=== PATIENT | male | born 1935 | race American Indian/Alaskan Native ===

== ENCOUNTER 2016-05-10 10:34 | Day surgery (SDC) | payer MEDICARE, OTHER ==
[~2016-05-10 10:34] MED LIST: ANCEF/STERILE WATER 2 GM/20 ML 2 GM/20 ML SYRINGE IV SCH; MARCAINE 0.5% INFILTRATI ONE; NACL 0.9% IR ONE; XYLOCAINE 1%/ EPI 1:100,000 INFILTRATI ONE; ceFAZolin 2 GM in NACL 0.9% 100 ML IV ONE
[2016-05-10] MEDS ORDERED: NACL 0.9% 1000 ML 1,000 ML ONE (11:42)
--- NOTE | 2016-05-10 11:46 | Anesthesia Consultation ---
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
--- NOTE | 2016-05-10 11:46 | Anesthesia Day of Surgery ---
Anesthesia Day of Surgery - Day of Surgery Patient Examined: Yes Patient H&P Reviewed: Yes Patient is NPO: Yes
[2016-05-10] MEDS ORDERED: XYLOCAINE MPF 2% ONE (11:56)
[2016-05-10] MEDS ORDERED: SUBLIMAZE ONE (11:57)
[2016-05-10] MEDS ORDERED: DIPRIVAN 10 MG/ML IV ONE (11:57)
[2016-05-10] MEDS ORDERED: VERSED ONE (11:57)
[2016-05-10] MEDS ORDERED: NACL 0.9% 1000 ML 1,000 ML IV SCH (12:00)
[2016-05-10] MEDS ORDERED: ZEMURON IV ONE (12:38)
[2016-05-10] MEDS ORDERED: ePHEDrine SULFATE ONE ×2 (12:38→13:32)
[2016-05-10] MEDS ORDERED: MARCAINE 0.5% INFILTRATI ONE ×2 (12:48)
[2016-05-10] MEDS ORDERED: XYLOCAINE 1%/ EPI 1:100,000 INFILTRATI ONE ×2 (12:48)
[2016-05-10] MEDS ORDERED: NEOSTIGMINE ONE (13:01)
[2016-05-10] MEDS ORDERED: ZOFRAN ONE (13:01)
[2016-05-10] MEDS ORDERED: ROBINUL ONE (13:01)
[2016-05-10] MEDS ORDERED: NACL 0.9% IR ONE (13:33)
--- NOTE | 2016-05-10 14:22 | Discharge Summary ---
Short Stay Discharge Plan Activity: no restrictions, other (no driving until seen in the office) Diet: regular Wound: other (remove dressing in 3 days; may shower in 3 days) Follow up with: BRAXTON KLEIN DO [Primary Care Provider] - 7 Days VIKTORIYA COLÓN MD [Staff Physician] - 7 Days Prescriptions: HYDROcodone/APAP 5-325 [Cedar 5/325] 1 each PO Q4HR PRN #30 tablet PRN Reason: Pain
--- NOTE | 2016-05-10 14:23 | Post Operative Note ---
Pre-op diagnosis: STM R neck/back 10 x 10 cm; STM R upper back 10 X 10 cm Post-op diagnosis: same Findings: see path Procedure: Excision of STM R neck/back Excision of STM R upper back Anesthesia: GETA Surgeon: VIKTORIYA COLÓN Estimated blood loss: none Pathology: list (STM X 2) Specimen disposition: to lab Condition: stable Disposition: PACU
--- NOTE | 2016-05-10 14:44 | Post Anesthesia Evaluation ---
- Post Anesthesia Evaluation Patient Participated: No (resting) Airway Patent: Yes Stable Respiratory Function: Yes Nausea/Vomiting: No Temp > 96.8F: Yes Pain Manageable: Yes Adequeate Hydration: Yes Anesthesia Complications: No Block Receding Appropriately: No Patient on Ventilator: No
--- NOTE | 2016-05-10 15:01 | Operative Report ---
PREOPERATIVE DIAGNOSES: 1. Soft tissue mass, right neck, upper back, 10 x 10 cm. 2. Soft tissue mass, right upper back, 10 x 10 cm. POSTOPERATIVE DIAGNOSES: 1. Soft tissue mass, right neck, upper back, 10 x 10 cm. 2. Soft tissue mass, right upper back, 10 x 10 cm. PROCEDURE: 1. Excision of soft tissue mass, right neck/upper back 10 x 10 cm. 2. Excision of soft tissue mass, right upper back 10 x 10 cm. TYPE OF ANESTHESIA: General. SURGEON: Hawa Brandt MD INFRASTRUCTURE TECHNICIAN: None. ESTIMATED BLOOD LOSS: None. INDICATIONS: This is an 80-year-old gentleman noted to have above 2 soft tissue masses. Due to the large size and difficulty in lying on his back, he wanted to have the mass removed. DESCRIPTION OF PROCEDURE: The procedure was done in the operating room. The patient was brought to the operating room and after adequate general endotracheal anesthesia was obtained, he was placed in a prone position with appropriate padding. The right neck and upper back were prepped and draped in usual fashion. Initially, attention was turned to the mass in the neck and upper back area, 1:1 mixture of 0.25% Marcaine and 1% lidocaine was infiltrated in field block anesthesia fashion. A vertical incision was made overlying the mass and dissection was carried down. The soft tissue mass was from surrounding attachments using Harmonic scalpel device and finger dissection of the mass. Once it was freed, it was removed and sent to pathology. Hemostasis was ascertained. The wound was irrigated. The subcutaneous pocket was reapproximated using 3-0 Vicryl and then skin was reapproximated using 4-0 Monocryl in running subcuticular fashion. Attention was then turned to the second mass that was a little bit lower and lateral on the right upper back. Again, local anesthetic was infiltrated in field block anesthesia fashion. Next, an incision was made over the mass. Dissection was carried down and the mass was broken from its surrounding attachments using the Harmonic scalpel device as well as finger dissection. Once this was done, the mass was removed and sent to pathology. Hemostasis was ascertained. The wound was irrigated again. The subcutaneous pocket was reapproximated using 3-0 Vicryl and then the skin was reapproximated using 4-0 Monocryl in running subcuticular fashion. Both incisions were then covered with skin glue and pressure dressings were applied. The patient tolerated the procedure. There were no immediate complications. All counts reported as correct. JOB# [id number] SAGE/LILIAN
[2016-05-10 15:36] VITALS: BP 110/67
--- NOTE | 2016-05-11 03:26 | Admit Criteria Form ---
Admission Criteria Documentation: AMBULATORY SURGERY EXCEPTION CRITERIA Ambulatory Surgery Exception Criteria ( Place 'X' for any and all applicable criteria): Surgery or procedure performed on ambulatory basis may require inpatient stay for[A] ANY ONE of the following(1)(2)(3)(4)(5)(6)(7)(8)(9): [X] I. A preoperative situation, condition, or finding that warrants inpatient stay as indicated by ANY ONE of the following: [] a) Inpatient care needed because of severity of a disease or condition rather than the surgery (eg, severe cardiac or respiratory disease, severe infection) (15) (16 ) (17) (18) [] b) Emergent procedure (eg, angioplasty for acute ischemia)(19) [] c) Complex surgical approach or situation as indicated by ANY ONE of the following(3): [] i) Open approach needed instead of usual endoscopic, transcatheter, or other less invasive procedure [] ii) Difficult approach because of previous operation [] iii) Airway monitoring required after open neck procedures(20)(21) [] iv) Large mass requiring unusually extensive dissection [] v) Additional complicating feature requiring inpatient care (eg, drain management)(22(23): [X] d) Major surgery in a pt with high anesthetic risk as indicated by ANY ONE of the following (2)(3)(5)(7)(8): [X] i) ASA risk class III or higher (severe systemic disease impairing function) [D] [] ii) Advanced age (eg, older than 85 years)(14)(24) [] iii) Symptomatic heart failure(25) [] iv) Symptomatic asthma or COPD(8)(21) [] v) Morbid obesity with hemodynamic or respiratory problems(20)( 21)(26)(27) [] vi) Obstructive sleep apnea(20)(21) [] vii) Former premature infants who are younger than 60 weeks [] viii) High risk for severe postoperative abnormalities (eg, severe postoperative hypocalcemia after parathyroidectomy for severe hyperparathyroidism)(27)( 28) [] ix) Unstable angina(25) [] e) Drug-related risk requiring inpatient stay as indicated by ANY ONE of the following(5)(10)(14)(32)(33) [] i) Procedure requires discontinuing drugs or other therapy (eg , antiarrhythmic medication, antiseizure medication), which necessitates inpatient observation or treatment.(18)(31) [] ii) Major surgery and high risk drug use as indicated by ANY ONE of the following: [] 1) Active abuse of cocaine or similar drug [] 2) Monoamine oxidase inhibitor use [] 3) Other drug identified as posing risk [] f) Inadequate outpatient care situation as indicated by ANY ONE of the following(5)(10)(14)(32)(33) [] i) Patient lives remote from medical facility and procedure has urgent complication potential, and temporary nearby residence cannot be arranged [] ii) Patient will have postprocedure incapacitation and inadequate assistance at home, or alternative level of care cannot be arranged. [] iii) Patient will have long general anesthesia or procedure side effect resolution time, and competent person to stay with patient on first postoperative night at home or alternative level of care cannot be arranged. []iv) Other inadequate outpatient situation that cannot be handled by other means [] II. A perioperative event, condition, or finding that warrants inpatient stay as indicated by ANY ONE of the following (1)(2)(3): [] a) Inadequate physiologic recovery: cardiovascular, respiratory, or hemodynamic status not normal or near preoperative baseline(18) [] b) Hemodynamic instability [] c) Patient not alert with near normal or baseline mental status [] d) Temperature not normal or as expected and not appropriate for outpatient treatment of condition [] e) Ambulatory or appropriate activity level status not yet achieved post procedure [E](34)(35)(36) [] f) Operative site not appropriate (eg, unexpected or excessive drainage or bleeding) [] g) Postoperative effects not resolved or adequately managed (eg, significant pain or vomiting not appropriate for outpatient or next level of care)(10)(12) [] h) Complicating features requiring inpatient care as indicated by ANY ONE of the following(37): [] i) Severe complications of procedure (eg, bowel injury, airway compromise, vascular injury,severe hemorrhage) [] ii) Extensive (eg, dissection far beyond usual scope of procedure ) or prolonged (eg, 120 minutes beyond usual) surgery needed requiring inpatient postoperative care [] iii) Conversion to an open or complex procedure that requires inpatient care (eg, open vs laparoscopic cholecystectomy, abdominal vs vaginal hysterectomy)(38) [] iv) Comorbid condition or test result identified during or post procedure that requires inpatient care (7) [] v) Malignant hyperthermia(30) [] vi) Other complicating feature requiring inpatient care(22)(23) Inpatient stay may be needed until ALL of the following are present (1)(2)(3)(4) (5)(6)(10)(14)(33)(40): []a) Physiologic recovery: cardiovascular, respiratory, and hemodynamic status normal or near preoperative baseline []b) Hemodynamic stability []c) Patient alert, with near normal or baseline mental status []d) Temperature appropriate: patient afebrile or temperature appropriate for outpt treatment of condition []e) Activity level appropriate: ambulatory or appropriate activity level post procedure []f) Operative site appropriate as indicated by ALL of the following: []i) Site dry or with expected drainage []ii) Any blood noted is as expected for procedure. []g) Postoperative effects resolved or managed as indicated by ALL of the following: []i) Pain management appropriate for outpatient (or next level of) care(10) []ii) Minimal nausea and vomiting: if present, successfully treated with oral medication(12) []iii) Headache, dizziness, or drowsiness (if present) are mild. []h) Voiding status acceptable as indicated by ANY ONE of the following: []i) Voiding spontaneously []ii) No voiding but instructions given for follow-up in 6 to 8 hours []iii) Urinary catheter in place, and instructions given for follow-up []i) Complicating features requiring inpatient care manageable at a lower level of care(37) []j) Comorbid conditions manageable at a lower level of care(37) The original [employer] content created by [employer] has been revised. The portions of the content which have been revised are identified through the use of italic text or in bold, and [facility] [email or web address] has neither reviewed nor approved the modified material. All other unmodified content is copyright [employer]. Please see references footnoted in the original [employer] edition 2016 Admission Criteria Met: Yes
== END 2016-05-10 16:16 | disposition home or self-care (01) ==
LOC: OR 10:34
PROVIDERS: ATTEND Surgery
DX: M79.89 Other specified soft tissue disorders (principal); I11.0 Hypertensive heart disease with heart failure; I50.9 Heart failure, unspecified; E78.5 Hyperlipidemia, unspecified; I25.10 Atherosclerotic heart disease of native coronary artery without angina pectoris; I25.2 Old myocardial infarction; E66.9 Obesity, unspecified; Z68.33 Body mass index [BMI] 33.0-33.9, adult; Z95.0 Presence of cardiac pacemaker; Z87.891 Personal history of nicotine dependence; Z85.038 Personal history of other malignant neoplasm of large intestine; Z95.1 Presence of aortocoronary bypass graft; Z79.899 Other long term (current) drug therapy; Z79.82 Long term (current) use of aspirin
CPT/HCPCS: 21552; 21931; 88307; J0690; J2250; J2405; J2704; J2710; J3010; J7030; 88304